=== PATIENT | female | born 2000 | race Caucasian/White ===

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

== ENCOUNTER 2022-06-25 00:49 | Emergency (ER) | payer OTHER ==
[~2022-06-25] VITALS: Ht 167.6 cm; Wt 74.8 kg
== END 2022-06-25 02:59 | disposition home or self-care (01) ==
LOC: ER 00:49
DX: R51.9 Headache, unspecified (principal)
CPT/HCPCS: J1200; J2550